=== PATIENT | female | born 1980 | race Hispanic/Latino ===

== ENCOUNTER 2018-12-03 07:59 | Inpatient (IN) ==
[2018-12-03 09:01] LABS: URINE SOURCE VOIDED
[2018-12-03 09:05] LABS: BILIRUBIN URINE NEGATIVE (NEGATIVE); BLOOD URINE 3+ (NEGATIVE); CLARITY VERY CLOUDY (CLEAR); COLOR YELLOW; GLUCOSE URINE NEGATIVE (NEGATIVE); KETONE URINE TRACE mg/dL (NEGATIVE); LEUKOCYTES URINE 1+ (NEGATIVE); NITRITE URINE NEGATIVE (NEGATIVE); PH URINE 6.5; PROTEIN URINE 1+(30 mg/dL) mg/dL (NEGATIVE); UROBILINOGEN URINE 1 mg/dL
[2018-12-03 09:11] LABS: UR AMPHETAMINES QUAL NONE DETECTED (NONE DETECT); UR BARBITUATES QUAL NONE DETECTED (NONE DETECT); UR BENZODIAZEPIN QUAL NONE DETECTED (NONE DETECT); UR CANNABINOIDS QUAL NONE DETECTED (NONE DETECT); UR COCAINE QUAL NONE DETECTED (NONE DETECT); UR METHADONE QUAL NONE DETECTED (NONE DETECT); UR METHAMPHETAMINE QUAL NONE DETECTED (NONE DETECT); UR OPIATES QUAL NONE DETECTED (NONE DETECT); UR OXYCODONE QUAL NONE DETECTED (NONE DETECT); UR PCP QUAL NONE DETECTED (NONE DETECT); UR PROPOXYPHENE QUAL NONE DETECTED (NONE DETECT); UR TCA QUAL NONE DETECTED (NONE DETECT)
[2018-12-03 09:38] LABS: BASO# 0.02 X1000 (0.0-0.2); BASO% 0.3 % (0.0-0.8); EOS# 0.03 X1000 (0.0-0.7); EOS% 0.5 % (0.0-10.0); HEMOGLOBIN 12.4 g/dL (12.0-16.0); IMM GRAN# 0.02 X1000 (0.0-0.04); IMM GRAN% 0.3 % (0.0-0.5); LYMPH# 2.25 X1000 (1.2-3.4); LYMPH% 36.1 % (20.5-51.1); MCH 27.6 PG (27-31); MCHC 33.5 g/dL (33-37); MCV 82.2 FL (81-99); MONO# 0.49 X1000 (0.11-0.59); MONO% 7.9 % (1.7-9.3); MPV 12.4 FL (7.4-10.4); NEUT# 3.42 X1000 (1.4-6.5); NEUT% 54.9 % (42.2-75.2); PLT 179 X1000 (130-400); RDW 16.9 % (11.5-14.5); WBC 6.23 X1000 (4.8-10.8)
[2018-12-03 10:03] LABS: RPR NON-REACTIVE (NONREACTIVE)
[2018-12-03 10:10] LABS: RAPID HIV PRESUMPTIVE NEGATIVE
[2018-12-03] MEDS ORDERED: REGLAN PO ONE (10:17)
[2018-12-03] MEDS ORDERED: TYLENOL PO PRN (10:17)
[2018-12-03] MEDS ORDERED: AMPICILLIN 2 GM/NS 2 GM/100 ML IVPB IV ONE (10:17)
[2018-12-03] MEDS ORDERED: PEPCID PO ONE (10:17)
[2018-12-03] MEDS ORDERED: PEPCID PO PRN (10:17)
[2018-12-03] MEDS ORDERED: PEPCID IV PRN (10:17)
[2018-12-03] MEDS ORDERED: KEFZOL 1 GM/D5W 1 GM/50 ML IVPB IV PRN (10:17)
[2018-12-03] MEDS ORDERED: STADOL IV PRN (10:17)
[2018-12-03] MEDS ORDERED: LR 500 ML IV ONE (10:17)
[2018-12-03] MEDS ORDERED: ZOFRAN IV PRN (10:17)
--- NOTE | 2018-12-03 10:25 | Diag Imaging Result Doc PS360 ---
US OBS COMPLETE > 14 WKS - 12/03/2018 INDICATION: no care, possible ROM TECHNIQUE: COMPARISON: None FINDINGS: There is a single intrauterine . Positioning is cephalic. Estimated gestational age is 39 weeks +/- 16 days. Estimated delivery date is 12/10/2018. There is essentially no amniotic fluid. cardiac activity is 120 bpm. Maternal uterus is normal. The cervix is closed. Ovaries are obscured. Normal anatomy including head and intracranial contents, spine, extremities, four-chamber heart, diaphragms, stomach, kidneys, urinary bladder, three-vessel cord and cord insertion. IMPRESSION: 1. Advanced intrauterine in cephalic position. 2. Severe oligohydramnios. Compatible with ruptured membranes. Electronically signed by Clarence Santos 12/03/2018 10:23 AM
[2018-12-03] MEDS ORDERED: LR 1,000 ML IV SCH (10:30)
[2018-12-03] MEDS ORDERED: SODIUM CHLORIDE 0.9% INJ SCH (10:30)
[2018-12-03] MEDS ORDERED: PITOCIN 30 UNITS/NS 30 UNIT/500 ML IV.SOLN IV SCH ×2 (10:30→12:00)
--- NOTE | 2018-12-03 11:25 | HISTORY AND PHYSICAL ---
CHIEF COMPLAINT: Leakage of vaginal fluid and contractions. HISTORY OF PRESENT ILLNESS: A 38-year-old, G6, P5, 0-0-5 at 39 weeks and 4 days by LMP, who presented to Labor and Delivery with complaint of leakage of fluid since 7:00 in the morning on 12/03/2018. The patient reports of contractions noted afterwards. The patient denied of any vaginal bleeding. The patient feels the baby move. The patient has had no care during this . Reports reason being that she does not have a job. The patient did apply for Medicaid insurance. The patient otherwise did not have any other complaints or concerns. PAST MEDICAL HISTORY: Denied. PAST SURGICAL HISTORY: Denied. OBSTETRICAL HISTORY: Spontaneous vaginal deliveries x4. No complications reported during any of the pregnancies or deliveries. The patient reports all her babies were about 6 pounds and X ounces. No history of miscarriages or abortions. 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 Denied history of abnormal Pap smears. Reports last Pap smear done was about 1 year ago in [place]. MEDICATIONS: vitamins. ALLERGIES: No known drug allergies. SOCIAL HISTORY: The patient [place] in the [place] with her cousin and 2 of her children. Her other 3 children live in [place]. The patient denied of tobacco, alcohol, or illicit drug use. FAMILY HISTORY: Noncontributory. REVIEW OF SYSTEMS: Negative except as noted in HPI. LABS: None. PHYSICAL EXAMINATION: VITAL SIGNS: Temperature 96.3 degrees, pulse 81, respirations 18, blood pressure 118/79, weight 205 pounds, and height 5 feet 3 inches. GENERAL: No apparent distress. Alert and oriented x3. CARDIOVASCULAR: Regular rate and rhythm. LUNGS: Clear to auscultation bilaterally. No rhonchi, wheezing or rales. ABDOMEN: Soft and nontender to palpation. Gravid. Estimated weight approximately 8.5 pounds by Reginaldo's. PELVIS: There is some pooling noted within the vagina. Ferning positive. SVE 4 cm/ 80% effacement/ -2 station. heart tracings 120s, moderate variability, accelerations present, no apparent decelerations. Tocometer contractions about every 2 to 5 minute. IMAGING DATA: Abdominal ultrasound CIPRIANO by ultrasound 12/10/2018. CIPRIANO by LMP 12/06/2018. Estimated weight 3721 g (8 pounds 3 ounces). BRIONNA 4.44. Cephalic presentation. LABORATORY: Hemoglobin 12.4, hematocrit 37, and platelet 179,000. Glucose 78. UDS unremarkable. RPR nonreactive. Rapid HIV screen negative. Rest of labs pending. ASSESSMENT: A 38-year-old, G6, P5, 0-0-5 at 39 weeks and 4 days by LMP consistent with a formal ultrasound done 12/03/2018 with: 1. Spontaneous rupture membrane and labor. - Plan for expectant management. - Risks of vaginal delivery discussed with the patient including, but not limited to bleeding, infection, lacerations, use of vacuum and/or forceps (with risks of operative delivery discussed in depth with the patient), possible section (with risks of section discussed in depth with the patient, which includes risks such as bleeding, infection, injury to surrounding organs, hysterectomy, reoperation, postoperative pain and /disability). Also, discussed risk of possible shoulder dystocia and brachial plexus injuries, especially given EFW. All questions answered. The patient expressed understanding. - Language Line vegetable grader used during the entire conversation. - well-being category 1 tracings. - The patient declined use of epidural. 2. No care - [facility]
[2018-12-03] MEDS ORDERED: CYTOTEC PO PRN (11:52)
[2018-12-03] MEDS ORDERED: MINERAL OIL PO PRN (11:52)
[2018-12-03] MEDS ORDERED: PERI MEDS (DERMOPLAST/NUPERCAINAL/TUCKS) MISC PRN (11:52)
[2018-12-03] MEDS ORDERED: BENADRYL PO PRN (11:52)
[2018-12-03] MEDS ORDERED: BOOSTRIX VACCINE IM ONE (11:52)
[2018-12-03] MEDS ORDERED: M-M-R II VACCINE SUBQ ONE (11:52)
[2018-12-03] MEDS ORDERED: NORCO-5 PO PRN (11:52)
[2018-12-03] MEDS ORDERED: XYLOCAINE-MPF 1% INJ PRN (11:52)
[2018-12-03] MEDS ORDERED: PITOCIN IM PRN (11:52)
[2018-12-03] MEDS ORDERED: COLACE PO PRN (11:54)
[2018-12-03] MEDS ORDERED: PITOCIN 20 UNITS/NS 20 UNITS/1,000 ML IV.SOLN IV SCH (12:00)
[2018-12-03] MEDS: MOTRIN PO SCH ×2 (12:27→20:19)
[2018-12-03] MEDS ORDERED: AMPICILLIN 1 GM/NS 1 GM/50 ML IVPB IV SCH (15:00)
[2018-12-03 16:01] LABS: RUBELLA SCREEN IMMUNE (IMMUNE)
[2018-12-03 16:52] LABS: HIV ANTIBODY SCREEN SEE COMMENTS
--- NOTE | 2018-12-03 17:47 | OPERATIVE NOTE ---
PROCEDURE DATE: 12/03/2018 PREOPERATIVE DIAGNOSIS: A 38-year-old G6, P5-0-0-5 with spontaneous rupture of membranes and active labor. POSTOPERATIVE DIAGNOSIS: A 38-year-old G6, P6-0-0-6 status post spontaneous vaginal delivery at 39 weeks and 4 days. PROCEDURE: Spontaneous vaginal delivery. DATE OF DELIVERY: 12/03/2018 at 11:19. DESCRIPTION OF PROCEDURE: The patient presented with a spontaneous rupture of membranes and labor. She progressed to complete cervical dilation without epidural present and had a spontaneous vaginal delivery of a live female , Apgars 9 and 10 at 1 and 5 minutes respectively, weight 8 pounds 15 ounces. Head delivered first in occiput anterior position followed by anterior then posterior shoulders, no shoulder dystocia or nuchal cord present, followed by rest of body. was placed on maternal abdomen. Delayed umbilical cord clamping was done. Umbilical cord was then doubly clamped and cut. Umbilical cord blood was collected. IV Pitocin was initiated to facilitate uterine contractibility. Placenta was then delivered, grossly intact, with three-vessel cord present. No cotyledons were missing. Placenta appeared to be intact. Bimanual massage was done with expression of some clots within the lower uterine segment. Fundus was firm. Inspection of the vagina, perineum, and urethra was done revealing no lacerations. EBL approximately 400 mL. The patient tolerated with some discomfort. Count correct x2.
[2018-12-03] MEDS: PITOCIN 20 UNITS/NS 20 UNITS/1,000 ML IV.SOLN IV SCH (20:59)
[2018-12-04] MEDS: MOTRIN PO SCH ×3 (03:46→20:31)
[2018-12-04] MEDS: PITOCIN 20 UNITS/NS 20 UNITS/1,000 ML IV.SOLN IV SCH (05:05)
[2018-12-04 07:28] LABS: HEMATOCRIT 31.5 % (37.0-47.0); HEMOGLOBIN 10.2 g/dL (12.0-16.0); MCH 26.9 PG (27-31); MCHC 32.4 g/dL (33-37); MCV 83.1 FL (81-99); MPV 12.6 FL (7.4-10.4); RBC 3.79 XMIL (4.2-5.4); RDW 16.8 % (11.5-14.5); WBC 10.39 X1000 (4.8-10.8)
[2018-12-04 07:58] LABS: HEPATITIS B SURFACE ANTIGEN SEE COMMENTS
--- NOTE | 2018-12-04 08:09 | OB/GYN PROGRESS NOTE ---
Progress Note OB - . Patient Problems: Current Active Problems Problem Status Onset (spontaneous vaginal delivery) Acute No care in current in third trimester Acute OB Progress Note: Vital Signs - 24 hr 12/03/18 12:18 12/03/18 16:05 12/03/18 20:02 Temperature 96.3 F L 96.9 F L Pulse Rate 70 78 68 Respiratory Rate 18 18 18 Blood Pressure 118/64 144/79 139/84 O2 Sat by Pulse Oximetry 99 97 98 12/03/18 23:44 12/04/18 03:41 Temperature 97.2 F L 96.7 F L Pulse Rate 62 62 Respiratory Rate 18 18 Blood Pressure 145/86 151/74 O2 Sat by Pulse Oximetry 98 97 Laboratory Results - last 24 hr 12/03/18 12/03/18 12/03/18 08:15 08:15 09:24 WBC RBC Hgb Hct MCV MCH MCHC RDW Std Deviation Plt Count MPV Immature Gran % (Auto) Neut % (Auto) Lymph % (Auto) [place] % (Auto) Eos % (Auto) Baso % (Auto) Immature Gran # (Auto) Neut # (Auto) Lymph # (Auto) [place] # (Auto) Eos # (Auto) Baso # (Auto) Glucose 78 Urine Source VOIDED Urine Color YELLOW Urine Clarity VERY CLOUDY A Urine pH 6.5 Ur Specific [place] 1.020 Urine Protein 1+(30 mg/dL) A Urine Ketones TRACE Urine Blood 3+ A Urine Nitrite NEGATIVE Urine Bilirubin NEGATIVE Urine Urobilinogen 1 Urine WBC 1+ A Urine Glucose NEGATIVE Urine Opiates Screen NONE DETECTED Ur Oxycodone Screen NONE DETECTED Urine Methadone Screen NONE DETECTED U Propoxyphene Qual NONE DETECTED Ur Barbituates Screen NONE DETECTED Ur Tricyclics Screen NONE DETECTED Ur Phencyclidine Scrn NONE DETECTED Ur Amphetamines Screen NONE DETECTED U Methamphetamines Scrn NONE DETECTED U Benzodiazepines Scrn NONE DETECTED Urine Cocaine Screen NONE DETECTED U Cannabinoids Screen NONE DETECTED RPR Hep Bs Antigen HIV 1&2 Antibody Screen HIV 1&2 Antibody Rapid Rubella Immunity Screen Blood Type Antibody Screen 12/03/18 12/03/18 12/03/18 09:24 09:24 09:24 WBC 6.23 RBC 4.50 Hgb 12.4 Hct 37.0 MCV 82.2 MCH 27.6 MCHC 33.5 RDW Std Deviation 16.9 H Plt Count 179 MPV 12.4 H Immature Gran % (Auto) 0.3 Neut % (Auto) 54.9 Lymph % (Auto) 36.1 [place] % (Auto) 7.9 Eos % (Auto) 0.5 Baso % (Auto) 0.3 Immature Gran # (Auto) 0.02 Neut # (Auto) 3.42 Lymph # (Auto) 2.25 [place] # (Auto) 0.49 Eos # (Auto) 0.03 Baso # (Auto) 0.02 Glucose Urine Source Urine Color Urine Clarity Urine pH Ur Specific [place] Urine Protein Urine Ketones Urine Blood Urine Nitrite Urine Bilirubin Urine Urobilinogen Urine WBC Urine Glucose Urine Opiates Screen Ur Oxycodone Screen Urine Methadone Screen U Propoxyphene Qual Ur Barbituates Screen Ur Tricyclics Screen Ur Phencyclidine Scrn Ur Amphetamines Screen U Methamphetamines Scrn U Benzodiazepines Scrn Urine Cocaine Screen U Cannabinoids Screen RPR NON-REACTIVE Hep Bs Antigen SEE COMMENTS HIV 1&2 Antibody Screen HIV 1&2 Antibody Rapid PRESUMPTIVE NEGATIVE Rubella Immunity Screen IMMUNE Blood Type Antibody Screen 12/03/18 12/03/18 12/04/18 09:24 10:10 06:25 WBC 10.39 RBC 3.79 L Hgb 10.2 L D Hct 31.5 L MCV 83.1 MCH 26.9 L MCHC 32.4 L RDW Std Deviation 16.8 H Plt Count 165 MPV 12.6 H Immature Gran % (Auto) Neut % (Auto) Lymph % (Auto) [place] % (Auto) Eos % (Auto) Baso % (Auto) Immature Gran # (Auto) Neut # (Auto) Lymph # (Auto) [place] # (Auto) Eos # (Auto) Baso # (Auto) Glucose Urine Source Urine Color Urine Clarity Urine pH Ur Specific [place] Urine Protein Urine Ketones Urine Blood Urine Nitrite Urine Bilirubin Urine Urobilinogen Urine WBC Urine Glucose Urine Opiates Screen Ur Oxycodone Screen Urine Methadone Screen U Propoxyphene Qual Ur Barbituates Screen Ur Tricyclics Screen Ur Phencyclidine Scrn Ur Amphetamines Screen U Methamphetamines Scrn U Benzodiazepines Scrn Urine Cocaine Screen U Cannabinoids Screen RPR Hep Bs Antigen HIV 1&2 Antibody Screen SEE COMMENTS HIV 1&2 Antibody Rapid Rubella Immunity Screen Blood Type O POSITIVE Antibody Screen NEGATIVE HPI: Pt seen and examined. Currently w/o complaints. Pain well controlled. Ambulating and urinating without difficiulty. Tolerating regular diet, Denies N/V. Denies Fever/chills/SOB/CP. VS: Please see above PHYSICAL EXAM: GEN: NAD; AAOx3 CV: RRR RESP: CTAB; no rhonchi, wheezing or rales ABD: soft, non-tender to palpation; non-distended; active bowel sounds; fundus firm and below umbilicus EXT: no LE TTP A&P: A 38-year-old, PPD#1 s/p at 39 weeks and 4 days -Monitor BP closey -Pain well controlled with PO pain meds -OOB to ambulation -regular diet -con't PP care -Plan for d/c home tomorrow
[2018-12-05] MEDS: MOTRIN PO SCH (04:41)
[2018-12-05 07:37] VITALS: BP 141/78
--- NOTE | 2018-12-05 09:44 | DISCHARGE SUMMARY ---
ADMISSION DATE: 12/03/2018 DISCHARGE DATE: HISTORY OF PRESENT ILLNESS/HOSPITAL COURSE: Dipika is a 38-year-old 6, para 5, now 6, who presented to Labor and Delivery with no care and a term complaining of leakage of fluid. The patient was evaluated and found to have a category 1 tracing, history of 4 vaginal deliveries in the past, and had been on vitamins. Initial labs indicate O positive blood and a hemoglobin of 12 with negative RPR, negative rapid HIV, and rubella immune. Ultrasound indicated cephalic position and 39+ weeks gestation with minimal fluid consistent with rupture of membranes. She was admitted for labor and underwent a normal spontaneous vaginal delivery on 12/03/2018 delivering an 8 pound 15 ounce baby with scores of 9 and 10. course was uncomplicated. day #1 she was afebrile with stable vital signs. She was ambulating, voiding, and tolerating a regular diet. hemoglobin was 10.2. On day #2 she is ambulating, voiding, and tolerating a regular diet. Vital signs are stable and she is afebrile. She is discharged home in stable condition. DISCHARGE INSTRUCTIONS: She is asked to follow up in the office in 6 weeks. She is to call the office for pain, fever greater than 100.4, or abnormal uterine bleeding. Maintain pelvic rest and a regular diet. Continue her vitamins. A prescription for Motrin was provided.
== END 2018-12-05 11:00 | disposition home or self-care (01) | DRG 807 ==
LOC: P.NBC 07:59 → P.LD 08:01
PROVIDERS: ADMIT Obstetrics & Gynecology Obstetrics; ATTEND Obstetrics & Gynecology Obstetrics
CPT/HCPCS: 59025; 76805; 80104; 80301; 80305; 81003; 82947; 85025; 85027; 86592; 86701; 86703; 86762; 86850; 86900; 86901; 87070; 87340; 87389; 87390; 87491; 87591; A9270; G0431; G0434; G0477; J0290; J0595; J2590; J7120